=== PATIENT | female | born 1980 | race Caucasian/White ===

== ENCOUNTER 2016-09-17 22:51 | Emergency (ER) | payer MEDICAID ==
[2016-09-17] MEDS ORDERED: HYDROCODONE/APAP 10/325 TABLET PO ONE (23:10)
[2016-09-17] MEDS ORDERED: DIAZEPAM 5 MG TABLET PO ONE (23:10)
--- NOTE | 2016-09-17 23:16 | Emergency Department Record ---
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 Patient denies fevers, chills, or recent illness. Patient denies abdominal pain, nausea, vomiting, or urinary symptoms. 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 MD Complaint: Back pain Onset/Timin -: Days(s) Similar Symptoms Previously: Yes Place: Home Severity: Moderate Quality: Aching Consistency: Constant Worsens With: Movement Context: Bending Associated Symptoms: Denies other symptoms Treatments Prior to Arrival: Prescription analgesics - Related Data Home Medications Medication Instructions Recorded Confirmed Last Taken Gabapentin [Neurontin] 100 mg PO BID 07/12/15 09/17/16 Unknown Metoprolol Tartrate 25 mg PO DAILY 07/12/15 09/17/16 Unknown Oxybutynin Chloride [Ditropan] 10 mg PO DAILY 07/12/15 09/17/16 Unknown Oxycodone HCl/Acetaminophen 1 tab PO Q4H PRN 07/12/15 09/17/16 Unknown [Percocet 10mg/325mg] Cyclobenzaprine HCl [Flexeril] 10 mg PO ASDIR PRN 09/17/16 09/17/16 Unknown Duloxetine HCl [Duloxetine HCl] 60 mg PO BID 09/17/16 09/17/16 Unknown Imipramine HCl [Imipramine HCl] 25 mg PO QHS 09/17/16 09/17/16 Unknown Lamotrigine [Lamotrigine] 100 mg PO DAILY 09/17/16 09/17/16 Unknown Omeprazole [Prilosec] 20 mg PO DAILY 09/17/16 09/17/16 Unknown Penicillin V Potassium 500 mg PO QID 09/17/16 09/17/16 Unknown Pregabalin [Lyrica] 150 mg PO DAILY 09/17/16 09/17/16 Unknown Previous Rx's Medication Instructions Recorded Diazepam [Valium] 5 mg PO Q8H PRN #10 tab 09/18/16 Hydrocodone/Acetaminophen [[place] 1 tab PO Q6H PRN #10 tab 09/18/16 7.5mg/325mg] Allergies Allergy/AdvReac Type Severity Reaction Status Date / Time No Known Drug Allergies Allergy Verified 06/03/14 18:55 Review of Systems Constitutional: Denies: Chills, Fever, Malaise, Night sweats Eyes: Denies: Eye discharge, Eye pain ENT: Denies: Congestion, Ear pain, Epistaxis Respiratory: Denies: Cough, Dyspnea Cardiovascular: Denies: Chest pain, Dyspnea on exertion Endocrine: Denies: Fatigue, Heat or cold intolerance Gastrointestinal: Denies: Abdominal pain, Nausea, Vomiting Genitourinary: Denies: Frequency, Hematuria, Incontinence, Retention Musculoskeletal: Reports: Back pain. Denies: Arthralgia, Gout, Joint swelling Skin: Denies: Bruising, Change in color Neurological: Denies: Abnormal gait, Confusion, Headache, Tingling Psychiatric: Denies: Anxiety Hematological/Lymphatic: Denies: Anemia, Blood Clots Past Medical History - SOCIAL HISTORY Smoking Status: Never smoker - RESPIRATORY Hx Respiratory Disorders: No - CARDIOVASCULAR Hx Cardio Disorders: No - NEURO Hx Neuro Disorders: No - GI Hx GI Disorders: No - Hx Genitourinary Disorders: Yes Hx Dialysis: Yes (during kidney stone treatment) Hx Kidney Stones: Yes - ENDOCRINE Hx Endocrine Disorders: No - MUSCULOSKELETAL Hx Musculoskeletal Disorders: No - PSYCH Hx Psych Problems: Yes Hx Anxiety: Yes Hx Depression: Yes - HEMATOLOGY/ONCOLOGY Hx Hematology/Oncology Disorders: Yes Hx Anemia: Yes Hx Blood Transfusions: Yes Hx Blood Transfusion Reaction: No Family Medical History Hx Diabetes: Father, Grandparents Hx Heart Disease: Father Physical Exam - General General Appearance: Alert, Oriented x3, Cooperative, No acute distress, Other ( patient is sitting up, well appearing on examination) Limitations: No limitations - Head Head exam: Atraumatic, Normocephalic, Normal inspection Head exam detail: negative: Abrasion, Contusion, Brownlee's sign, General tenderness, Hematoma, Laceration - Eye Eye exam: Normal appearance. negative: Conjunctival injection, Periorbital swelling, Periorbital tenderness, Scleral icterus - ENT Ear exam: negative: Auricular hematoma, Auricular trauma Nasal Exam: negative: Active bleeding, Discharge, Dried blood, Foreign body Mouth exam: negative: Drooling, Laceration, Muffled voice, Tongue elevation - Neck Neck exam: Normal inspection. negative: Meningismus, Tenderness - Respiratory Respiratory exam: Normal lung sounds bilaterally. negative: Respiratory distress, Rhonchi, Stridor, Wheezes - Cardiovascular Cardiovascular Exam: Regular rate, Normal rhythm, Normal heart sounds - GI/Abdominal GI/Abdominal exam: Soft. negative: Rebound, Rigid, Tenderness - Rectal Rectal exam: Deferred - exam: Deferred - Extremities Extremities exam: Other (Bilateral BKAs with prostesis in place, bilateral previous amputations to the fingers.) - Back Back exam: Reports: Paraspinal tenderness (left lower lumbar region). Denies: CVA tenderness (R), CVA tenderness (L) - Neurological Neurological exam: Alert, Oriented X3 - Psychiatric Psychiatric exam: Normal affect, Normal mood - Skin Skin exam: Normal color. negative: Abrasion Type of lesion: negative: abrasion Course Vital Signs 09/17/16 22:58 Temperature 98.4 F Pulse Rate [ 84 Pulse Ox Probe] Respiratory 16 Rate Blood Pressure 156/103 [Left Arm] Pulse Ox 99 - Reevaluation(s) Reevaluation #1: 09/17/16 23:52 Labs reviewed, UA appears negative for infection, mild contamination is present. Patient is currently in CT for imaging. Reevaluation #2: 09/18/16 00:21 CT Abdomen and Pelvis: Nothing acute, no kidney stone present, no hydronephrosis. Patient reassessed and updated on all results, appears to be resting comfortably reading on a tablet. Patient reports that her symptoms are improved , and appears stable for discharge at this time. Medical Decision Making - Lab Data Result diagrams: 09/17/16 23:34 09/17/16 23:34 Disposition Disposition: Discharge Clinical Impression: Strain of Lumbar Region Qualifiers: Encounter type: initial encounter Qualified Code(s): S39.012A - Strain of muscle, fascia and tendon of lower back, initial encounter Disposition: Home, Self-Care Condition: (2) Stable Instructions: Low Back Strain (ED) Additional Instructions: Return to ED if your symptoms worsen or if you have any concerns. Mckee and Valium as directed. Follow-up with Dr. Nichols in 3-5 days as directed. Prescriptions: Hydrocodone/Acetaminophen [[place] 7.5mg/325mg] 1 tab PO Q6H PRN #10 tab PRN Reason: Pain - General Diazepam [Valium] 5 mg PO Q8H PRN #10 tab PRN Reason: Pain - Moderate (5-7) Forms: Patient Portal Access Time of Disposition: 00:23
[2016-09-17 23:40] LABS: URINE APPEARANCE CLEAR; URINE BILIRUBIN NEGATIVE (NEGATIVE); URINE BLOOD SMALL (NEGATIVE); URINE COLOR YELLOW; URINE GLUCOSE (UA) NEGATIVE (NEGATIVE); URINE KETONE NEGATIVE (NEGATIVE); URINE LEUKOCYTE ESTERASE SMALL (NEGATIVE); URINE NITRITE NEGATIVE (NEGATIVE); URINE PROTEIN TRACE (NEGATIVE); URINE UROBILINOGEN 0.2 E.U./dL (0.20 - 1.00)
[2016-09-17 23:40] LABS: BASO % 0.3 % (0-6); EOS % 5.8 % (0-6); GRAN % 59.7 % (47-80); HEMATOCRIT 34.6 % (35.0-47.0); HEMOGLOBIN 10.8 gm/dl (11.6-16.0); LYMPH % 28.8 % (16-45); MEAN CELL VOLUME 82.8 fl (81-97); MEAN CORPUSCULAR HEMOGLOBIN 25.8 pg (27-33); MEAN CORPUSCULAR HGB CONC 31.2 g/dl (32-36); MEAN PLATELET VOLUME 9.5 fl (7.4-10.4); MONO % 5.4 % (0-9); PLATELET COUNT 401 K/uL (130-400); RED BLOOD COUNT 4.18 M/uL (3.80-5.40); WHITE BLOOD COUNT W/O DIFF 8.8 K/uL (4.2-12.2)
[2016-09-17 23:45] LABS: URINE BACTERIA FEW
[2016-09-17 23:51] LABS: ALB/GLOB RATIO 1.3 (1.1-1.8); ALKALINE PHOSPHATASE 70 U/L (38-126); ALT/SGPT 30 U/L (9-52); ANION GAP 10.6 (7-16); AST/SGOT 17 U/L (14-36); BILIRUBIN,TOTAL 0.15 mg/dL (0.2-1.3); BLOOD UREA NITROGEN 13 mg/dL (7-17); CARBON DIOXIDE 28.4 mmol/L (22-30); CREATININE 0.9 mg/dL (0.52-1.04); EST GLOMERULAR FILTRATION RATE > 60 ml/min; GLUCOSE,RANDOM 93 mg/dL (70-110); TOTAL PROTEIN 7.2 gm/dL (6.3-8.2)
== END 2016-09-18 00:30 | disposition home or self-care (01) ==
LOC: ER 22:51
DX: S39.012A Strain of muscle, fascia and tendon of lower back, initial encounter (principal); X50.1XXA Overexertion from prolonged static or awkward postures, initial encounter; Y92.009 Unspecified place in unspecified non-institutional (private) residence as the place of occurrence of the external cause; Z87.442 Personal history of urinary calculi
CPT/HCPCS: 99283; 99284; 85025; 80053; 81001; 74176; J3490 ×2

== ENCOUNTER 2019-09-03 14:15 | Emergency (ER) | payer MEDICARE, MEDICAID ==
[2019-09-03] MEDS ORDERED: ONDANSETRON HCL IV 4 MG/2 ML VIAL IV ONE (14:45)
[2019-09-03] MEDS ORDERED: 0.9 % SODIUM CHLORIDE 1,000 ML BAG IV ONE (14:45)
--- NOTE | 2019-09-03 14:54 | Emergency Department Record ---
History of Present Illness - General Chief complaint: Vomiting Stated complaint: VOMITING Time Seen by Provider: 09/03/19 14:32 Source: Patient Mode of Arrival: Wheelchair Limitations: No limitations - History of Present Illness Initial comments: The patient is here due to vomiting intermittently for 4 months. She states the symptoms have been worse the last few days. She denies any pain, fever, chills, dysuria, diarrhea, CP or SOB. The patient does have a hx of gastric bypass and did have an EGD in [place] last week for this problem but is not sure of the results. She has no hx of diabetes or marijuana use. Additionally she has been having mild L flank pain but not severe. MD complaint: Nausea, Vomiting Onset/Timin -: Month(s) Consistency: Intermittent Improves with: None Worsens with: None Associated Symptoms: Denies other symptoms - Related Data Previous Rx's Medication Instructions Recorded Diazepam [Valium] 5 mg PO Q8H PRN #10 tab 09/18/16 Hydrocodone/Acetaminophen [[place] 1 tab PO Q6H PRN #10 tab 09/18/16 7.5mg/325mg] Allergies Allergy/AdvReac Type Severity Reaction Status Date / Time morphine Allergy ANAPHYLAXIS Verified 09/03/19 14:31 Travel Screening - Travel/Exposure Within Last 30 Days Have you traveled within the last 30 days?: No - Travel/Exposure Within Last Year Have you traveled outside the [place] in the last year?: No - Additonal Travel Details Have you been exposed to anyone with a communicable illness?: No - Travel Symptoms Symptom Screening: None Review of Systems Constitutional: Denies: Chills, Fever Eyes: Denies: Eye discharge ENT: Denies: Congestion Respiratory: Denies: Cough, Dyspnea Cardiovascular: Denies: Arrhythmia Endocrine: Denies: Fatigue Gastrointestinal: Reports: Nausea, Vomiting. Denies: Abdominal pain, Diarrhea Genitourinary: Denies: Dysuria Musculoskeletal: Denies: Arthralgia, Back pain Skin: Denies: Bruising Past Medical History - SOCIAL HISTORY Smoking Status: Never smoker Alcohol Use: None Drug Use: None - RESPIRATORY Hx Respiratory Disorders: No - CARDIOVASCULAR Hx Cardio Disorders: No - NEURO Hx Neuro Disorders: No - GI Hx GI Disorders: No - Hx Genitourinary Disorders: Yes Hx Dialysis: Yes (during kidney stone treatment) Hx Kidney Stones: Yes - ENDOCRINE Hx Endocrine Disorders: No - MUSCULOSKELETAL Hx Musculoskeletal Disorders: No - PSYCH Hx Psych Problems: Yes Hx Anxiety: Yes Hx Depression: Yes - HEMATOLOGY/ONCOLOGY Hx Hematology/Oncology Disorders: Yes Hx Anemia: Yes Hx Blood Transfusions: Yes Hx Blood Transfusion Reaction: No Family Medical History Any Significant Family History?: Yes Hx Diabetes: Father, Grandparents Hx Heart Disease: Father Physical Exam - General General Appearance: Alert, Oriented x3, Cooperative, No acute distress - Head Head exam: Atraumatic, Normocephalic - Eye Eye exam: Normal appearance, PERRL - ENT Throat exam: Normal inspection. negative: Tonsillar erythema, Tonsillar exudate - Neck Neck exam: Normal inspection, Full ROM. negative: Tenderness - Respiratory Respiratory exam: Normal lung sounds bilaterally. negative: Respiratory distress - Cardiovascular Cardiovascular Exam: Regular rate, Normal rhythm, Normal heart sounds - GI/Abdominal GI/Abdominal exam: Soft, Normal bowel sounds. 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 She denies any significant pain, nausea, or vomiting. I did discuss the CT and lab results with the patient and did discuss the need for urgent transfer. The patient would like to go to [facility]. I then did discuss the case with Dr. Madrigal in the ER at [facility] and she does accept the patient in an ER to ER transfer. 09/03/19 16:56 Medical Decision Making - Data Complexity MDM Data: Labs Ordered and/or Reviewed, X-Ray Ordered and/or Reviewed - Lab Data Result diagrams: 09/03/19 15:00 09/03/19 15:00 - Radiology Data Radiology results: Report reviewed (Abd CT: L proximal ureter stone 6 mm with hydro. Prob atrophic R kidney.) Disposition Disposition: Transfer Clinical Impression: Hydronephrosis Qualifiers: Hydronephrosis type: unspecified Qualified Code(s): N13.30 - Unspecified hydronephrosis Renal failure Qualifiers: Renal failure chronicity: acute Acute renal failure type: unspecified Qualified Code(s): N17.9 - Acute kidney failure, unspecified Disposition: Acute Care Hospital Transfer Transfer To: [facility] ER Reason For Transfer: Urology Accepting Physician: Rohan Time Discussed w/Accepting Physician: 16:58 Condition: (2) Stable Forms: Patient Portal Access Time of Disposition: 16:58 Quality - Quality Measures Quality Measures: N/A - Blood Pressure Screening View Details: Yes Does Patient Have Any of the Following: No Blood Pressure Classification: Pre-Hypertensive BP Reading Systolic Measurement: 128 Diastolic Measurement: 87 Screening for High Blood Pressure: < Pre-Hypertensive BP, F/U Documented > [[id number]] Pre-Hypertensive Follow-up Interventions: Referral to alternative/primary care provider.
[2019-09-03 15:15] LABS: BASO % 0.3 % (0-6); EOS % 4.4 % (0-6); GRAN % 70.5 % (47-80); HEMATOCRIT 35.1 % (35.0-47.0); HEMOGLOBIN 10.7 gm/dl (11.6-16.0); LYMPH % 20.1 % (16-45); MEAN CELL VOLUME 96.7 fl (81-97); MEAN CORPUSCULAR HGB CONC 30.5 g/dl (32-36); MEAN PLATELET VOLUME 10.2 fl (7.4-10.4); MONO % 4.7 % (0-9); PLATELET COUNT 358 K/uL (130-400); RED BLOOD COUNT 3.63 M/uL (3.80-5.40); RED CELL DISTRIBUTION WIDTH 13.8 % (11.5-14.5); WHITE BLOOD COUNT W/O DIFF 7.2 K/uL (4.2-12.2)
[2019-09-03 15:20] LABS: MEAN CORPUSCULAR HEMOGLOBIN 29.4 pg (27-33)
[2019-09-03 15:22] LABS: BLOOD UREA NITROGEN 45 mg/dL (6-20); CREATININE 4.7 mg/dL (0.5-0.9); EST GLOMERULAR FILTRATION RATE 11 mL/min
[2019-09-03 15:23] LABS: TOTAL PROTEIN 7.4 g/dL (6.6-8.7)
[2019-09-03 15:25] LABS: GLUCOSE,RANDOM 96 mg/dL (74-109)
[2019-09-03 15:28] LABS: ALBUMIN 3.8 g/dL (4.0-5.0); ALKALINE PHOSPHATASE 88 U/L (35-104); ALT/SGPT 7 U/L (<33); AST/SGOT 10 U/L (10.0-35.0); BILIRUBIN,DIRECT < 0.2 mg/dL (0-0.3)
[2019-09-03 15:44] LABS: URINE APPEARANCE CLEAR; URINE BILIRUBIN NEGATIVE (NEGATIVE); URINE BLOOD SMALL (NEGATIVE); URINE COLOR YELLOW; URINE GLUCOSE (UA) NEGATIVE (NEGATIVE); URINE KETONE NEGATIVE (NEGATIVE); URINE LEUKOCYTE ESTERASE MODERATE (NEGATIVE); URINE NITRITE NEGATIVE (NEGATIVE); URINE UROBILINOGEN 0.2 E.U./dL (0.20 - 1.00)
[2019-09-03] MEDS ORDERED: 0.9 % SODIUM CHLORIDE 1000ML 1,000 ML IV ONE (15:47)
[2019-09-03 15:51] LABS: URINE EPITHELIAL CELLS RARE (FEW); URINE WBC 16 - 20 (0-2/hpf)
--- NOTE | 2019-09-03 16:43 | CT SCAN REPORT ---
EXAMINATION: CT Abdomen and Pelvis without IV Contrast EXAM DATE: 09/03/2019 4:14 PM TECHNIQUE: Standard protocol CT imaging of the abdomen and pelvis was performed without intravenous c ontrast. INDICATION: L flank pain with vomiting. COMPARISON: CT abdomen/pelvis dated 09/17/2016 ENCOUNTER: Not applicable CT ABDOMEN AND PELVIS FINDINGS: Lung Bases: Included extent of the lung bases are clear. Hepatobiliary: The liver has a normal size with a smooth surface. Normal gallbladder. Pancreas: The pancreas is normal. Spleen: The spleen is not enlarged. Adrenals: The adrenal glands are normal. Kidneys, Ureters, & Bladder: There is mild left hydronephrosis secondary to a 6 mm calculus in the pr oximal left ureter. The left kidney is globally enlarged and decreased in attenuation. There are bila teral nonobstructing renal calculi measuring up to 5 mm on the right. The right kidney is atrophic. T here is no right ureteral calculus. There is a 10 mm urinary bladder calculus. Gastrointestinal: No bowel obstruction or free intraperitoneal air. Normal appendix. Status post leodan ranjan surgery. Reproductive Organs: Unremarkable Lymphatic System: There is no adenopathy within the abdomen or pelvis. Vasculature: Normal caliber abdominal aorta Peritoneum: No free fluid, free air, or inflammation Abdominal wall & Musculoskeletal: No suspicious bone lesion is identified. Assessment of the solid organs, soft tissues, and vascular structures is overall limited on noncontra st imaging, IMPRESSION: 1. Mild left hydronephrosis secondary to a 6 mm calculus in the proximal left ureter. 2. Globally enlarged left kidney may represent compensatory hypertrophy secondary to the atrophic rig ht kidney. However, diffusely decreased attenuation of the cortex raises concern for pyelonephritis. 3. Bilateral nonobstructing renal calculi and a 10 mm urinary bladder calculus. Dictated by: Cindy Jha MD on 09/03/2019 4:29 PM. .
[2019-09-03] MEDS ORDERED: CEFTRIAXONE 1GM/50ML BAG 1 GM/50 ML BAG IVPB ONE (16:44)
== END 2019-09-03 17:05 | disposition short-term general hospital (02) ==
LOC: ER 14:15
DX: N13.2 Hydronephrosis with renal and ureteral calculous obstruction (principal); N17.9 Acute kidney failure, unspecified; R11.2 Nausea with vomiting, unspecified; Z98.84 Bariatric surgery status; Z87.442 Personal history of urinary calculi; Z89.512 Acquired absence of left leg below knee; Z89.511 Acquired absence of right leg below knee
CPT/HCPCS: 99285 ×2; 96365; 96375; 96361; 85025; 80076; 80048; 81001; 84703; 74176; J2405; J0696; J7030